=== PATIENT | male | born 1980 | race Caucasian/White ===

== ENCOUNTER 2018-01-10 01:26 | Emergency (ER) | payer MEDICAID ==
--- NOTE | 2018-01-10 02:26 | EDPHY ---
H & P Stated Complaint: BROUGHT IN BY [employer] Time Seen by Provider: 01/10/18 01:43 HPI/ROS: Chief Complaint: Diabetes, strange behavior HPI: 37-year-old male homeless type 1 diabetic being brought in by police for blood sugar check and strange behavior. Patient was in a bar trying to use the bathroom and acting strangely. Police were called. The patient is only singing or writing down answers in the book. He claims that he is diabetic an autistic. He also has a fever the police and physicians is afraid that we are going to hurt him. Does not feel that anyone else's at to get him. Denies being suicidal or homicidal. Is not hallucinating. Does admit to using marijuana but none recently. Denies any alcohol or other drug use. Does not smoke. He is currently without complaint and is mikhail for safety. He is only repeating what I say volar coli but will write down short answers in a book. ROS: 10 systems were reviewed and were negative except those elements noted in the HPI. PMH: Diabetes Social History: Occasional smoking, no alcohol, occasional marijuana Family History: non-contributory Physical Exam: Gen: Awake, Alert, No Distress HEENT: Nose: no rhinorrhea Eyes: PERRLA, EOMI Mouth: Moist mucosa Neck: Supple, no JVD Chest: nontender, lungs clear to auscultation Heart: S1, S2 normal, no murmur Abd: Soft, non-tender, no guarding Back: no CVA tenderness, no midline tenderness Ext: no edema, non-tender Skin: no rash Neuro: CN II-XII intact, Sensation grossly intact, Strength 5/5 in bilateral upper and lower extremities - Personal History Current Tetanus/Diphtheria Vaccine: Yes Current Tetanus Diphtheria and Acellular Pertussis (TDAP): Yes - Medical/Surgical History Hx Asthma: No Hx Chronic Respiratory Disease: No Hx Diabetes: Yes Hx Cardiac Disease: No Hx Renal Disease: No Hx Cirrhosis: No Hx Alcoholism: No Hx HIV/AIDS: No Hx Splenectomy or Spleen Trauma: No Other PMH: UNCLEAR - Social History Smoking Status: Light smoker Constitutional: Initial Vital Signs Temperature (C) 36.5 C 01/10/18 01:30 Heart Rate 97 01/10/18 01:30 Respiratory Rate 16 01/10/18 01:30 Blood Pressure 125/64 H 01/10/18 01:30 O2 Sat (%) 98 01/10/18 01:30 O2 Delivery Mode Room Air Medical Decision Making ED Course/Re-evaluation: 37-year-old homeless male presenting with strange behavior. He will only thing back what I am saying repeat what I am saying but he will write answers in his book. He is obviously very adept that managing his diabetes because his blood sugar is 177 right now. He is not suicidal. He is not seem to be responding to internal stimuli. He actually has organized behavior but is acting in a strange way. He is not appear gravely disabled. He is not suicidal. He is not hallucinating. Despite is bizarre behavior I do not see any grounds to hold him against his well. He is declining mental health evaluation at this time would would just like to go home. He says most looking help with his finding in a place where he can inject his diabetes without being bothered by other people. He will be discharged ureter refer him to follow up with [facility] with instructions to return for any concerns. - Data Points Laboratory Results: 01/10/18 01:47 POC Hgb 14.6 gm/dL gm/dL (13.7-17.5) POC Hct 43 % % (40-51) POC Sodium 141 mEq/L mEq/L (135-145) POC Potassium 3.3 mEq/L mEq/L (3.3-5.0) POC Chloride 100 mEq/L mEq/L (97-110) POC BUN 15 mg/dL mg/dL (7-23) POC Creatinine 0.8 mg/dL mg/dL (0.7-1.3) POC Glucose 177 mg/dL H mg/dL (70-100) Point of Care Test Results: Chemistry 01/10/18 01:47 POC Sodium 141 mEq/L mEq/L (135-145) POC Potassium 3.3 mEq/L mEq/L (3.3-5.0) POC Chloride 100 mEq/L mEq/L (97-110) POC BUN 15 mg/dL mg/dL (7-23) POC Creatinine 0.8 mg/dL mg/dL (0.7-1.3) POC Glucose 177 mg/dL H mg/dL (70-100) ISTAT H&H 09/20/18 01:47 POC Hgb 14.6 gm/dL gm/dL (13.7-17.5) POC Hct 43 % % (40-51) Departure - Departure Disposition: Home, Routine, Self-Care Clinical Impression: Diabetes, Abnormal behavior Condition: Good Instructions: Mood Disorders (ED) Additional Instructions: Follow up with [facility] in 2-3 days for further evaluation. Return to the emergency department for increasing confusion, difficulty controlling her blood sugar, uncontrolled nausea vomiting, fevers, or any other concerns. Referrals: [facility],. [Clinic] - As per Instructions
[2018-01-10 02:43] VITALS: BP 146/81
== END 2018-01-10 02:56 | disposition home or self-care (01) ==
DX: R41.82 Altered mental status, unspecified (principal); E10.9 Type 1 diabetes mellitus without complications; Z59.0 Homelessness
CPT/HCPCS: 82435-PO; 82565-PO; 82947-PO; 84132-PO; 84295-PO; 84520-PO; 85014-PO

== ENCOUNTER 2018-01-10 08:26 | Emergency (ER) | payer MEDICAID, OTHER ==
[2018-01-10 08:38] VITALS: BP 135/113
--- NOTE | 2018-01-10 08:47 | EDPHY ---
H & P Time Seen by Provider: 01/10/18 08:30 HPI/ROS: HPI Manic, seen here last night. 37-year-old male. Reports he is homeless since Sunday. He reports he has a type 1 diabetic. He reports he has a history of bipolar disorder. He reports that after discharge he went to the [facility]. He sought penitentiary in the courtyard of a [facility]. He was then lid inside that building this morning by a employee ED. He was in the lobby and sobbing. Bystanders called police. He was evaluated. There was not criteria to place him on a hold but he was sent to the emergency department by ambulance for evaluation. The patient denies suicidality. He is not homicidal. He reports that he has been doing much better from a psychiatric standpoint since he has been on Wellbutrin. He states that he is trying to find a place to stay. He is concerned that he has a private placed to injects his insulin. ROS: Constitutional: No fever, no chills. No weakness. Eyes: No discharge. No changes in vision. ENT: No sore throat. No nasal congestion or rhinorrhea. Respiratory: No cough. No shortness of breath. Cardiac: No chest pain, no palpitations. Gastrointestinal: No abdominal pain, no vomiting, no diarrhea. Genitourinary: No hematuria. No dysuria or increased frequency with urination. Musculoskeletal: No back pain. No neck pain. No myalgias or arthralgias. Skin: No rashes. Neurological: No headache. No focal weakness or altered sensation. Past medical history: Diabetes. Social history: As above. Smokes occasionally. Denies alcohol. Here by himself. Physical Exam: General Appearance: Alert, no distress. Mildly manic. This patient is responding to questions appropriately and in full sentences. This patient appears well-hydrated and well-nourished. Eyes: Pupils equal and round no pallor or injection. No lid edema, erythema or injection. Respiratory: There are no retractions, lungs are clear to auscultation with good air movement bilaterally. Cardiovascular: Regular rate and rhythm. No murmur. Gastrointestinal: Abdomen is soft and nontender, no masses, bowel sounds normal. No focal tenderness at McBurney's point. No Allen sign. Neurological: Motor sensory function is grossly intact. Cranial nerves are normal. Gait is normal. Skin: Warm and dry, no rashes. Musculoskeletal: Neck is supple and nontender. Extremities are symmetrical. All joints range without pain or impingement. Psychiatric: No agitation. No depression. Database: EKG: Imaging: Procedures: Emergency department course: I have reviewed his chart and emergency department workup from last night. He presented to the emergency department under similar circumstances. At this time he does not meet criteria for a hold. I will have case management see him and get him set up with the resources for penitentiary as well as with [facility] to manage health his diabetes. He is in agreement. He is here voluntarily. 9:20 a.m., the patient was seen by case management. Resources have been provided to him. He is not suicidal. He feels comfortable being discharged and is requesting to be discharged. Follow-up and return to emergency department precautions reviewed with him. All of his questions were answered. He was discharged in good condition. Differential Diagnosis: The differential diagnosis on this patient includes but is not limited to homeless, manic. Suicidality, homicidal, severe major depression unlikely. This represents a partial list of diagnoses considered. These considerations are based on history, physical exam, past history, reassessment and diagnostic testing. Smoking Status: Light smoker Constitutional: Initial Vital Signs Temperature (C) 36.9 C 01/10/18 08:33 Heart Rate 85 01/10/18 08:33 Respiratory Rate 18 01/10/18 08:33 Blood Pressure 135/113 H 01/10/18 08:33 O2 Sat (%) 96 01/10/18 08:33 O2 Delivery Mode Room Air Allergies/Adverse Reactions: No Known Allergies Allergy (Unverified 01/10/18 08:39) Home Medications: Medication Instructions Recorded Insulin 70/30 Human 01/10/18 Truvada 100 mg-150 mg Tablet 01/10/18 Wellbutrin Xl 01/10/18 Departure - Departure Disposition: Home, Routine, Self-Care Clinical Impression: Manic behavior Condition: Good Instructions: Bipolar Disorder (ED), Type 1 Diabetes in Adults: New Diagnosis ( ED) Additional Instructions: Read and follow provided instructions. Follow-up with your primary care physician in 1-2 days for re-evaluation. Take medication as prescribed. Return to the emergency department for worsening symptoms or other serious concerns. Referrals: [facility] [Outside] - As per Instructions [facility],. [Clinic] - As per Instructions
--- NOTE | 2018-01-10 10:18 | ASMTCMCOM ---
CM Note CM Note Notes: Pt seen at the request of ED ROXANA Nava. Pt was in FED 2x in 24 hours. He was initially brought in by [facility] for "strange behavior" and possible blood sugar check with fever. Pt recently located to [place] from [place] and he is currently homeless. [place] and he does not have a strong support system in [place]. Pt has Type I diabetes and indicated that he manages it fairly well. Pt admitted that he often feels "paranoid" and he thought someone went through his belongings and took a few things but also added a few things that weren't his. He did not want to stay in [facility] any longer and asked this SW to "walk and talk" to the exit. This SW tried to talk about residential and health care options but he insisted that he "just needed to leave and get food" in his system. He indicated that he would call the CM office for additional services but he planned to go to [facility] after he ate. No telephone number is listed to follow up with the pt. Date Signed: 01/10/2018 10:18 AM Electronically Signed By:Kye Rodriguez LCSW
--- NOTE | 2018-01-10 10:19 | ASMTLACE ---
LACE Length of stay for Answers: Less than 1 day current admission Acuity / Level of Answers: No Care: Did the patient have an inpatient admission? Comorbidities - select Answers: Diabetes (uncontrolled or all that apply controlled) # of Emergency department Answers: 1-2 visits in the last 6 months Social determinants Answers: Homelessness (street, jail) Lack of community resources and/or lack of social support (no pcp, lives alone, transportation, ashly d) Score: 9 Date Signed: 01/10/2018 10:19 AM Electronically Signed By:Kye Rodriguez LCSW
== END 2018-01-10 09:16 | disposition home or self-care (01) ==
LOC: EDUNIT#
DX: F30.10 Manic episode without psychotic symptoms, unspecified (principal); Z59.0 Homelessness; E10.9 Type 1 diabetes mellitus without complications

== ENCOUNTER 2018-01-15 20:45 | Emergency (ER) | payer MEDICAID ==
[2018-01-15] MEDS ORDERED: HALOPERIDOL LACT 5 MG/ML INJ ONE (20:51)
[2018-01-15] MEDS ORDERED: LORazepam 2 MG/ML INJ ONE (20:51)
[2018-01-15] MEDS ORDERED: LORazepam 2 MG/ML INJ IM ONE (21:00)
[2018-01-15] MEDS ORDERED: HALOPERIDOL LACT 5 MG/ML INJ IM ONE ×2 (21:00→21:02)
--- NOTE | 2018-01-15 21:00 | EDPHY ---
H & P Source: Patient, Police, EMS - Personal History Tetanus Vaccine Date: last 5 years - Medical/Surgical History Hx Asthma: No Hx Chronic Respiratory Disease: No Hx Diabetes: Yes Hx Cardiac Disease: No Hx Renal Disease: No Hx Cirrhosis: No Hx Alcoholism: No Hx HIV/AIDS: No Hx Splenectomy or Spleen Trauma: No Other PMH: type 1 diabetes, devyn, depression taking welbutrin, - Social History Smoking Status: Light smoker Time Seen by Provider: 01/15/18 21:00 HPI/ROS: HPI CHIEF COMPLAINT: Acute psychosis, M1 hold HISTORY OF PRESENT ILLNESS: 37-year-old male presents emergency room on M1 hold by police and EMS for acute psychosis. I went to go see and evaluate the patient and perform a history and the patient reports to me "I cannot tell who is on the other side of the windows, There are vampires that are pedophiles." Past Medical History: History of diabetes. History of his are behavior in the past. Past Surgical History: No recent surgery Social History: unknown drug use alcohol. Family History: Unknown ROS REVIEW OF SYSTEMS: Limited due to patient's clinical state. Exam Constitutional acutely psychotic, screaming triage nursing summary reviewed, vital signs reviewed, awake/alert. Eyes normal conjunctivae and sclera, EOMI, PERRLA. HENT normal inspection, atraumatic, moist mucus membranes, no epistaxis, neck supple/ no meningismus, no raccoon eyes. Respiratory clear to auscultation bilaterally, normal breath sounds, no respiratory distress, no wheezing. Cardiovascular rate normal, regular rhythm, no murmur, no edema, distal pulses normal. Gastrointestinal soft, non-tender, no rebound, no guarding, normal bowel sounds, no distension, no pulsatile mass. Genitourinary no CVA tenderness. Musculoskeletal no midline vertebral tenderness, full range of motion, no calf swelling, no tenderness of extremities, no meningismus, good pulses, neurovascularly intact. Skin pink, warm, & dry, no rash, skin atraumatic. Neurologic awake, alert and oriented x 3, AAOx3, moves all 4 extremities equally, motor intact, sensory intact, CN II-XII intact, normal cerebellar, normal vision, pressured speech, paranoid Psychiatric acutely psychotic and screaming, paranoid Heme/Lymph/Immune no lymphadenopathy. Differential Diagnosis: Includes but is not limited to in a particular order acute mental illness, acute psychosis, bipolar disorder with truong, schizophrenia, drug intoxication, alcohol intoxication Medical Decision Making: Plan for this patient patient is acutely psychotic and screaming and agitated as been ordered 10 mg IM Haldol, 1 mg IM Ativan. He will then need an IV and blood draw for medical clearance. He is on M1 hold by police. He will need mental health evaluation. Re-evaluation: 2199: Patient was acutely psychotic, manic, agitated upon arrival. Received 10 mg IM Haldol 1 mg IM Ativan. 2218: Patient on M1 hold. Needs mental evaluation after medical clearance with blood draw. 2299: Signed over to Dr. Hernandez at 11:00 p.m. Shift change. (Gabriel Saravia) 7:00 a.m.- The patient has been stable throughout my shift. He is awaiting mental health evaluation. He is medically clear. The case is signed out to Dr. Cruz. ( Maria Guadalupe Jacques) Constitutional: Initial Vital Signs Heart Rate 90 01/15/18 21:25 Respiratory Rate 16 01/15/18 21:25 Blood Pressure 122/55 H 01/15/18 21:25 O2 Sat (%) 94 01/15/18 21:25 O2 Delivery Mode Room Air Allergies/Adverse Reactions: No Known Allergies Allergy (Unverified 01/10/18 08:39) Home Medications: Medication Instructions Recorded Insulin 70/30 Human 01/10/18 Truvada 100 mg-150 mg Tablet 01/10/18 Wellbutrin Xl 01/10/18 - Data Points Laboratory Results: Laboratory Results 01/15/18 22:30 01/15/18 22:30 01/16/18 08:30 POC Glucose 127 mg/dL H mg/dL (70-100) Medications Given: Discontinued Medications Haloperidol Lactate (Haldol Injection) 5 mg IM EDNOW ONE Stop: 01/15/18 21:01 Last Admin: 01/15/18 21:29 Dose: 5 mg Haloperidol Lactate (Haldol Injection) 5 mg IM EDNOW ONE Stop: 01/15/18 21:03 Last Admin: 01/15/18 21:30 Dose: 5 mg Lorazepam (Ativan Injection) 1 mg IM EDNOW ONE Stop: 01/15/18 21:01 Last Admin: 01/15/18 21:30 Dose: 1 mg Point of Care Test Results: Chemistry 01/16/18 08:30 POC Glucose 127 mg/dL H mg/dL (70-100) Departure - Departure Disposition: Home, Routine, Self-Care Clinical Impression: Acute psychosis, Polysubstance abuse Condition: Good Instructions: Polysubstance Abuse (ED) Additional Instructions: Patient is medically optimized for treatment at a rehabilitation facility. Referrals: [facility],. [Clinic] - As per Instructions [facility] [Outside] - As per Instructions
[2018-01-15 22:36] LABS: PLATELET COUNT 293 10^3/uL (150-400)
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
[2018-01-16 13:21] VITALS: BP 133/62
--- NOTE | 2018-01-16 13:28 | ASMTTCLDSP ---
TLC Discharge Disposition Disposition: Answers: Discharge Disposition Notes: Notes: Pt stated commitment or ability to keep self safe, denied thoughts of self harm or harm to others. Pt expressed a desire to f/u with housing through [facility], [facility], or [facility]. Mother arrived at 1130 hrs to visit with pt. Pt was given local hotline information and [facility] brochure After an Attempt. Discharge Concerns/Recommendations: Notes: In consultation with [facility] ED physician, Jose Angel Cruz MD, Dr. Cruz concurred that pt does not appear to meet 27-65 criteria requiring psychiatric hospitalization as pt does not appear to be an imminent risk of harm to self/others/gravely disabled due to a mental illness condition. Dr. Cruz provided verbal order read back vacating M1 hold at 1200 hrs. Was patient given the Answers: Not applicable Inpatient Behavioral Health Prohibited Belongings List while in the ED? Psychiatrist vacating M1 Jose Angel Cruz MD Hold: Date and time M1 hold 01/16/2018 12:00 PM vacated (time format is hh:mm): Type of Hold: Answers: M1/72-hour Hold Hold initiated by: Answers: Police Date Signed: 01/16/2018 01:27 PM Electronically Signed By:Johann Corrales
== END 2018-01-16 13:20 | disposition home or self-care (01) ==
DX: F32.89 Other specified depressive episodes (principal); E10.9 Type 1 diabetes mellitus without complications; Z79.4 Long term (current) use of insulin; Z79.899 Other long term (current) drug therapy
CPT/HCPCS: 80305; G0480; J1630; J2060

== ENCOUNTER 2018-01-19 19:56 | Emergency (ER) | payer MEDICAID ==
[2018-01-19 20:14] VITALS: BP 130/75
--- NOTE | 2018-01-19 20:38 | EDPHY ---
H & P Stated Complaint: hypoglycemic Time Seen by Provider: 01/19/18 20:36 HPI/ROS: CHIEF COMPLAINT: Hypoglycemia HISTORY OF PRESENT ILLNESS: 37-year-old male with IDDM and depression presents after feeling hypoglycemic. He was on a hike earlier this afternoon, began to feel that his blood sugar was low. Bystanders gave him some food. On EMS arrival, they gave him glucose packets. Blood sugar prior to arrival was 160. He was seen in this emergency department yesterday and discharged home with his mother. The plan was to take him to [place] for inpatient treatment. He became scared and did not follow up with that plan. REVIEW OF SYSTEMS: complete 10 point ROS reviewed and is negative except for the noted elements in the HPI - Personal History Tetanus Vaccine Date: last 5 years - Medical/Surgical History Hx Asthma: No Hx Chronic Respiratory Disease: No Hx Diabetes: Yes Hx Cardiac Disease: No Hx Renal Disease: No Hx Cirrhosis: No Hx Alcoholism: No Hx HIV/AIDS: No Hx Splenectomy or Spleen Trauma: No Other PMH: type 1 diabetes, devyn, depression taking welbutrin, - Social History Smoking Status: Light smoker Drug Use: None Additional Social History: Homeless - Physical Exam Exam: General Appearance: Alert, pleasant Eyes: Pupils equal and round, no conjunctival pallor or injection ENT, Mouth: Mucous membranes moist Neck: Normal inspection Respiratory: Lungs are clear to auscultation Cardiovascular: Regular rate and rhythm Gastrointestinal: Abdomen is soft and nontender Neurological: A&O, nonfocal, normal gait Skin: Warm and dry, no rash Extremities: Nontender, no pedal edema Psychiatric: Mood and affect normal Constitutional: Initial Vital Signs Temperature (C) 36.8 C 01/19/18 20:07 Heart Rate 101 H 01/19/18 20:07 Respiratory Rate 16 01/19/18 20:07 Blood Pressure 130/75 H 01/19/18 20:07 O2 Sat (%) 96 01/19/18 20:07 O2 Delivery Mode Room Air Allergies/Adverse Reactions: No Known Allergies Allergy (Unverified 01/10/18 08:39) Home Medications: Medication Instructions Recorded Insulin 70/30 Human 01/10/18 Truvada 100 mg-150 mg Tablet 01/10/18 Wellbutrin Xl 01/10/18 Medical Decision Making ED Course/Re-evaluation: This patient presents after an episode of possible hypoglycemia. We offered him food, he ate a little. Blood sugar was adequate. He was calm until were about to discharge him. When told him that he was going home, he became quite agitated. He was escorted out of the ED by security. - Data Points Point of Care Test Results: Chemistry 01/19/18 21:52 POC Glucose 109 mg/dL H mg/dL (70-100) Departure - Departure Disposition: Home, Routine, Self-Care Clinical Impression: Hypoglycemia due to type 1 diabetes mellitus Condition: Good Instructions: Hypoglycemia in a Person with Diabetes (ED) Referrals: [facility],. [Clinic] - As per Instructions
== END 2018-01-19 23:03 | disposition home or self-care (01) ==
LOC: EDUNIT#
DX: E10.649 Type 1 diabetes mellitus with hypoglycemia without coma (principal)